=== PATIENT | male | born 1995 | race Two or more races ===

== ENCOUNTER 2023-06-09 11:16 | Emergency (ER) | payer MEDICAID ==
[~2023-06-09] VITALS: Ht 175.3 cm; Wt 86.2 kg
[2023-06-09] MEDS ORDERED: HYDROCODONE/APAP 5/325MG TABLET PO ONE (11:30)
[2023-06-09] MEDS ORDERED: HYDROCODONE/APAP 5/325MG TABLET ONE (11:44)
[2023-06-09] MEDS ORDERED: HYDR-3976 GT (12:51)
[2023-06-09] MEDS ORDERED: HYDR4TAB57 PO (13:15)
[2023-06-09] MEDS ORDERED: KETOROLAC TROMETHAMINE INJ 60 MG/2 ML VIAL IM ONE ×2 (13:30→13:37)
[2023-06-09 14:13] VITALS: BP 114/75; TEMP 98.2; O2SAT 98
== END 2023-06-09 14:15 | disposition home or self-care (01) ==
LOC: ER 11:16
DX: S92.312A Displaced fracture of first metatarsal bone, left foot, initial encounter for closed fracture (principal); S92.322A Displaced fracture of second metatarsal bone, left foot, initial encounter for closed fracture; W20.8XXA Other cause of strike by thrown, projected or falling object, initial encounter; Y93.89 Activity, other specified; Y92.89 Other specified places as the place of occurrence of the external cause; Y99.0 Civilian activity done for income or pay
CPT/HCPCS: 29515; 73630; 96372; 99285; J1885